=== PATIENT | male | born 2000 | race Asian ===

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

== ENCOUNTER 2021-01-30 10:13 | Emergency (ER) | payer BC ==
[~2021-01-30] VITALS: Ht 162.6 cm; Wt 45.4 kg
[2021-01-30 11:22] VITALS: BP 121/67; TEMP 97.2
== END 2021-01-30 12:06 | disposition home or self-care (01) ==
LOC: ED 11:13
DX: Z20.2 Contact with and (suspected) exposure to infections with a predominantly sexual mode of transmission (principal)
CPT/HCPCS: 81000; 87490; 87590; 96372; 99283; J0696